=== PATIENT | male | born 1970 | race Two or more races ===

== ENCOUNTER 2019-08-23 12:24 | Emergency (ER) | payer SELFPAY ==
[~2019-08-23] VITALS: Ht 167.6 cm; Wt 80.7 kg
[2019-08-23 12:32] VITALS: BP 140/86
--- NOTE | 2019-08-23 16:43 | NUR ---
Patient discharged to home in stable condition. Written and verbal after care instructions given. Patient verbalizes understanding of instruction.
== END 2019-08-23 16:45 | disposition home or self-care (01) ==
LOC: ER 12:24
DX: F10.129 Alcohol abuse with intoxication, unspecified (principal); Y90.9 Presence of alcohol in blood, level not specified; Z60.2 Problems related to living alone